=== PATIENT | female | born 1965 | race Caucasian/White ===

== ENCOUNTER 2023-12-09 13:00 | Day surgery (SDC) | payer OTHER ==
[2023-12-09] MEDS ORDERED: BUPIVACAINE HCL/MPF 0.5% 30ML VIAL ONE (14:53)
[2023-12-09] MEDS ORDERED: CEFAZOLIN SODIUM 1,000 MG VIAL ONE (14:53)
[2023-12-09] MEDS ORDERED: KETOROLAC TROMETHAMINE 30 MG VIAL ONE (16:20)
[2023-12-09] MEDS ORDERED: KETOROLAC TROMETHAMINE 30 MG VIAL IV ONE (16:30)
[2023-12-09] MEDS ORDERED: TYLENOL ARTHRI650 MG PO (16:39)
[2023-12-09] MEDS ORDERED: TRAMADOL HCL50 MG PO (16:39)
[2023-12-09] MEDS ORDERED: MIRALAX17 GM PO (16:39)
[2023-12-09] MEDS ORDERED: KETO10TA2 PO (16:39)
== END 2023-12-09 19:45 | disposition home or self-care (01) ==
LOC: CIR.AMB 13:00 → SURH 13:10 → EDSTATUS 13:11 → CIR.AMB 13:11
PROVIDERS: ATTEND Surgery
DX: K43.6 Other and unspecified ventral hernia with obstruction, without gangrene (principal); Z88.2 Allergy status to sulfonamides; I10 Essential (primary) hypertension; J45.909 Unspecified asthma, uncomplicated; M19.90 Unspecified osteoarthritis, unspecified site; H52.10 Myopia, unspecified eye; H52.209 Unspecified astigmatism, unspecified eye
CPT/HCPCS: 49594; C1781